=== PATIENT | female | born 1975 | race Asian ===

== ENCOUNTER 2018-10-12 13:34 | Inpatient (IN) | payer OTHER ==
[~2018-10-12] VITALS: Ht 152.4 cm; Wt 48.7 kg
[~2018-10-12 13:34] MED LIST: ETHA400T24 PO; FER325 PO; ISON300T18 PO; PREN-46 PO; PYRA500T21 PO; Pyridoxine PO; RIF120L PO
[2018-10-12] MEDS ORDERED: SODIUM CHLORIDE 0.9% 1L BAG IV* STA (15:39)
[2018-10-12] MEDS ORDERED: SOD CHLORIDE 0.9% 1,000 ML IV ONE (16:00)
[2018-10-12] MEDS ORDERED: IOHEXOL 300MG/ML 150 ML BTL ONE (16:16)
[2018-10-12] MEDS ORDERED: SOD CHLORIDE 0.9% 100 ML ONE (16:16)
[2018-10-12] MEDS ORDERED: VANCOMYCIN IV PER PHARMACY XX SCH (17:30)
[2018-10-12] MEDS ORDERED: ONDANSETRON 4 MG INJ IV PRN (17:30)
[2018-10-12] MEDS ORDERED: ACETAMINOPHEN 325 MG TAB PO PRN (17:30)
[2018-10-12] MEDS ORDERED: NACL 0.9% 3 ML SYG IV SCH (17:30)
[2018-10-12] MEDS ORDERED: HYDROCODONE/APAP (5/325) TAB PO PRN (17:30)
[2018-10-12] MEDS ORDERED: FLUCONAZOLE 100 MG/50 ML (PMX) 50 ML IVPB SCH (18:00)
[2018-10-12] MEDS ORDERED: VANCOMYCIN 1 GM in 250 ML IVPB ONE (18:00)
[2018-10-12] MEDS: PIPER-TAZO 3.375 GM IV (PMX) 100 ML IVPB SCH ×2 (18:34→23:55)
[2018-10-12] MEDS: ISONIAZID 300 MG TAB PO SCH (18:59)
[2018-10-12] MEDS: RIFAMPIN 300 MG CAP PO SCH (19:26)
[2018-10-12] MEDS: PYRIDOXINE 50 MG TAB PO SCH (19:26)
[2018-10-12] MEDS: ETHAMBUTOL 400 MG TAB PO SCH (19:28)
[2018-10-12] MEDS ORDERED: ISONIAZID 300 MG TAB PO SCH (20:00)
[2018-10-12] MEDS: PYRAZINAMIDE 500 MG TAB PO SCH (20:00)
[2018-10-12 20:55] VITALS: BP 113/62; PULSE 97; RESP 18
[2018-10-12] MEDS ORDERED: ETHAMBUTOL 100 MG TAB PO SCH (21:00)
[2018-10-12] MEDS: SOD CHLORIDE 0.9% 1,000 ML IV SCH (21:52)
[2018-10-12 22:02] VITALS: Ht 152.4 cm; Wt 48.7 kg
[2018-10-13 02:00] VITALS: BP 105/63; PULSE 92; RESP 18
[2018-10-13] MEDS: PIPER-TAZO 3.375 GM IV (PMX) 100 ML IVPB SCH ×4 (05:38→23:56)
[2018-10-13 08:30] VITALS: BP 103/61; PULSE 91; RESP 18
[2018-10-13] MEDS: RIFAMPIN 300 MG CAP PO SCH (08:41)
[2018-10-13] MEDS: PYRIDOXINE 50 MG TAB PO SCH (08:41)
[2018-10-13] MEDS: VANCOMYCIN 750 MG (PMX) 250 ML IVPB SCH ×2 (08:41→20:21)
[2018-10-13] MEDS: ISONIAZID 300 MG TAB PO SCH (08:41)
[2018-10-13] MEDS: ETHAMBUTOL 400 MG TAB PO SCH (08:42)
[2018-10-13] MEDS: PYRAZINAMIDE 500 MG TAB PO SCH (15:06)
[2018-10-13] MEDS: FLUCONAZOLE 100 MG TAB PO SCH (16:27)
[2018-10-13] MEDS: SOD CHLORIDE 0.9% 1,000 ML IV SCH (16:27)
[2018-10-13 20:00] VITALS: BP 99/63; PULSE 99; RESP 16
[2018-10-14 01:58] VITALS: BP 103/56; PULSE 76; RESP 16
[2018-10-14] MEDS: PIPER-TAZO 3.375 GM IV (PMX) 100 ML IVPB SCH ×2 (05:33→11:30)
[2018-10-14] MEDS: VANCOMYCIN 750 MG (PMX) 250 ML IVPB SCH (07:59)
[2018-10-14 08:00] VITALS: BP 98/61; PULSE 94; RESP 16
[2018-10-14] MEDS: RIFAMPIN 300 MG CAP PO SCH (08:18)
[2018-10-14] MEDS: PYRIDOXINE 50 MG TAB PO SCH (08:19)
[2018-10-14] MEDS: FLUCONAZOLE 100 MG TAB PO SCH (08:19)
[2018-10-14] MEDS: ISONIAZID 300 MG TAB PO SCH (08:20)
[2018-10-14] MEDS: PYRAZINAMIDE 500 MG TAB PO SCH (08:20)
[2018-10-14] MEDS: ETHAMBUTOL 400 MG TAB PO SCH (08:21)
[2018-10-14] MEDS: SOD CHLORIDE 0.9% 1,000 ML IV SCH ×2 (10:00→21:53)
[2018-10-14 14:00] VITALS: BP 98/57; PULSE 90; RESP 24
[2018-10-14] MEDS ORDERED: VANCOMYCIN 750 MG (PMX) 250 ML IVPB SCH (16:00)
[2018-10-14 20:33] VITALS: BP 100/58; PULSE 88; RESP 20
[2018-10-15 01:55] VITALS: BP 93/58; PULSE 82; RESP 18
[2018-10-15] MEDS: LEVOFLOXACIN 500 MG TAB PO SCH (06:02)
[2018-10-15 08:00] VITALS: BP 103/60; PULSE 94; RESP 16
[2018-10-15] MEDS: FLUCONAZOLE 100 MG TAB PO SCH (08:12)
[2018-10-15] MEDS: PYRAZINAMIDE 500 MG TAB PO SCH (08:12)
[2018-10-15] MEDS: RIFAMPIN 300 MG CAP PO SCH (08:12)
[2018-10-15] MEDS: ETHAMBUTOL 400 MG TAB PO SCH (08:12)
[2018-10-15] MEDS: ISONIAZID 300 MG TAB PO SCH (08:12)
[2018-10-15] MEDS: PYRIDOXINE 50 MG TAB PO SCH (08:12)
[2018-10-15 14:00] VITALS: BP 94/61; PULSE 92; RESP 24
[2018-10-15] MEDS: SOD CHLORIDE 0.9% 1,000 ML IV SCH (17:34)
[2018-10-15 20:00] VITALS: BP 108/67; PULSE 104; RESP 18
[2018-10-15] MEDS: FERROUS SULFATE (EC) 325 MG TAB PO SCH (21:42)
[2018-10-16 02:00] VITALS: BP 101/58; PULSE 82; RESP 17
[2018-10-16] MEDS: LEVOFLOXACIN 500 MG TAB PO SCH (05:45)
[2018-10-16 07:18] VITALS: BP 121/60; PULSE 91; RESP 16
[2018-10-16] MEDS: ETHAMBUTOL 400 MG TAB PO SCH (08:38)
[2018-10-16] MEDS: PYRAZINAMIDE 500 MG TAB PO SCH (08:38)
[2018-10-16] MEDS: RIFAMPIN 300 MG CAP PO SCH (08:38)
[2018-10-16] MEDS: ISONIAZID 300 MG TAB PO SCH (08:38)
[2018-10-16] MEDS: FLUCONAZOLE 100 MG TAB PO SCH (08:38)
[2018-10-16] MEDS: PYRIDOXINE 50 MG TAB PO SCH (08:38)
[2018-10-16] MEDS: FERROUS SULFATE (EC) 325 MG TAB PO SCH ×2 (08:38→21:23)
[2018-10-16] MEDS: SOD CHLORIDE 0.9% 1,000 ML IV SCH (12:27)
[2018-10-16 14:03] VITALS: BP 101/59; PULSE 69; RESP 16
[2018-10-16 20:00] VITALS: BP 101/58; PULSE 100; RESP 17
[2018-10-17 02:00] VITALS: BP 94/56; PULSE 85; RESP 17
[2018-10-17] MEDS: SOD CHLORIDE 0.9% 1,000 ML IV SCH (05:57)
[2018-10-17 08:00] VITALS: BP 100/51; PULSE 95; RESP 20
[2018-10-17] MEDS: ISONIAZID 300 MG TAB PO SCH (09:01)
[2018-10-17] MEDS: FERROUS SULFATE (EC) 325 MG TAB PO SCH ×2 (09:01→21:22)
[2018-10-17] MEDS: RIFAMPIN 300 MG CAP PO SCH (09:01)
[2018-10-17] MEDS: PYRAZINAMIDE 500 MG TAB PO SCH (09:01)
[2018-10-17] MEDS: PYRIDOXINE 50 MG TAB PO SCH (09:01)
[2018-10-17] MEDS: ETHAMBUTOL 400 MG TAB PO SCH (10:44)
[2018-10-17 20:00] VITALS: BP 101/63; PULSE 95; RESP 17
[2018-10-18 02:00] VITALS: BP 98/57; PULSE 87; RESP 18
[2018-10-18 08:14] VITALS: BP 105/62; PULSE 90; RESP 16
[2018-10-18] MEDS: ETHAMBUTOL 400 MG TAB PO SCH (08:27)
[2018-10-18] MEDS: PYRAZINAMIDE 500 MG TAB PO SCH (08:27)
[2018-10-18] MEDS: RIFAMPIN 300 MG CAP PO SCH (08:27)
[2018-10-18] MEDS: ISONIAZID 300 MG TAB PO SCH (08:28)
[2018-10-18] MEDS: FERROUS SULFATE (EC) 325 MG TAB PO SCH ×2 (08:28→21:23)
[2018-10-18] MEDS: PYRIDOXINE 50 MG TAB PO SCH (08:28)
[2018-10-18 14:00] VITALS: BP 123/69; PULSE 101; RESP 18
[2018-10-18 22:45] VITALS: BP 96/62; PULSE 91; RESP 19
[2018-10-19 04:00] VITALS: BP 102/64; PULSE 83; RESP 19
[2018-10-19 08:02] VITALS: BP 100/65; PULSE 103; RESP 16
[2018-10-19] MEDS: RIFAMPIN 300 MG CAP PO SCH (08:15)
[2018-10-19] MEDS: FERROUS SULFATE (EC) 325 MG TAB PO SCH ×2 (08:15→21:58)
[2018-10-19] MEDS: PYRIDOXINE 50 MG TAB PO SCH (08:15)
[2018-10-19] MEDS: PYRAZINAMIDE 500 MG TAB PO SCH (08:16)
[2018-10-19] MEDS: ISONIAZID 300 MG TAB PO SCH (08:16)
[2018-10-19] MEDS: ETHAMBUTOL 400 MG TAB PO SCH (08:19)
[2018-10-19 14:29] VITALS: BP 92/62; PULSE 97; RESP 18
[2018-10-19 20:10] VITALS: BP 100/65; PULSE 77; RESP 18
[2018-10-20 02:05] VITALS: BP 97/56; PULSE 75; RESP 18
[2018-10-20 08:00] VITALS: BP 108/62; PULSE 94; RESP 17
[2018-10-20] MEDS: ISONIAZID 300 MG TAB PO SCH (09:39)
[2018-10-20] MEDS: PYRAZINAMIDE 500 MG TAB PO SCH (09:40)
[2018-10-20] MEDS: RIFAMPIN 300 MG CAP PO SCH (09:40)
[2018-10-20] MEDS: PYRIDOXINE 50 MG TAB PO SCH (09:41)
[2018-10-20] MEDS: FERROUS SULFATE (EC) 325 MG TAB PO SCH ×2 (09:41→20:32)
[2018-10-20] MEDS: ETHAMBUTOL 400 MG TAB PO SCH (09:48)
[2018-10-20 10:00] VITALS: RESP 24
[2018-10-20 14:04] VITALS: BP 109/70; PULSE 80; RESP 19
[2018-10-20] MEDS ORDERED: ONDANSETRON (ODT) 4 MG TAB ODT PRN (16:00)
[2018-10-20 20:10] VITALS: BP 128/72; PULSE 75; RESP 18
[2018-10-20] MEDS: CEPASTAT LOZENGE MT PRN (20:36)
[2018-10-21 02:10] VITALS: BP 98/60; PULSE 91; RESP 18
[2018-10-21 08:26] VITALS: BP 107/57; PULSE 100; RESP 20
[2018-10-21] MEDS: ISONIAZID 300 MG TAB PO SCH (08:33)
[2018-10-21] MEDS: FERROUS SULFATE (EC) 325 MG TAB PO SCH ×2 (08:33→20:58)
[2018-10-21] MEDS: RIFAMPIN 300 MG CAP PO SCH (08:33)
[2018-10-21] MEDS: PYRIDOXINE 50 MG TAB PO SCH (08:34)
[2018-10-21] MEDS: ETHAMBUTOL 400 MG TAB PO SCH (08:34)
[2018-10-21] MEDS: PYRAZINAMIDE 500 MG TAB PO SCH (08:34)
[2018-10-21] MEDS: CEPASTAT LOZENGE MT PRN ×2 (12:12→17:47)
[2018-10-21 14:00] VITALS: BP 116/60; PULSE 103; RESP 20
[2018-10-21 16:42] VITALS: PULSE 95
[2018-10-21 20:10] VITALS: BP 106/73; PULSE 90; RESP 18
[2018-10-22 02:05] VITALS: BP 98/61; PULSE 72; RESP 18
[2018-10-22 07:45] VITALS: BP 11/86; PULSE 104; RESP 16
[2018-10-22] MEDS: FERROUS SULFATE (EC) 325 MG TAB PO SCH ×2 (08:41→21:01)
[2018-10-22] MEDS: PYRIDOXINE 50 MG TAB PO SCH (08:41)
[2018-10-22] MEDS: RIFAMPIN 300 MG CAP PO SCH (08:42)
[2018-10-22] MEDS: ETHAMBUTOL 400 MG TAB PO SCH (08:42)
[2018-10-22] MEDS: ISONIAZID 300 MG TAB PO SCH (08:42)
[2018-10-22] MEDS: PYRAZINAMIDE 500 MG TAB PO SCH (08:42)
[2018-10-22] MEDS ORDERED: hydrOXYzine HCL 10 MG TAB PO PRN (09:30)
[2018-10-22] MEDS: HYDROCORTISONE 1% 28 GM CR TOP SCH ×3 (10:27→21:02)
[2018-10-22 14:05] VITALS: BP 103/66; PULSE 91; RESP 16
[2018-10-22 19:52] VITALS: BP 96/64; PULSE 91; RESP 16
[2018-10-23 02:05] VITALS: BP 106/71; PULSE 96; RESP 16
[2018-10-23 08:00] VITALS: BP 130/79; PULSE 100; RESP 18
[2018-10-23] MEDS: ETHAMBUTOL 400 MG TAB PO SCH (08:52)
[2018-10-23] MEDS: PYRAZINAMIDE 500 MG TAB PO SCH (08:53)
[2018-10-23] MEDS: FERROUS SULFATE (EC) 325 MG TAB PO SCH ×2 (08:53→20:08)
[2018-10-23] MEDS: HYDROCORTISONE 1% 28 GM CR TOP SCH ×3 (08:53→20:10)
[2018-10-23] MEDS: PYRIDOXINE 50 MG TAB PO SCH (08:53)
[2018-10-23] MEDS: ISONIAZID 300 MG TAB PO SCH (08:53)
[2018-10-23] MEDS: RIFAMPIN 300 MG CAP PO SCH (08:53)
[2018-10-23 14:00] VITALS: BP 105/71; PULSE 95; RESP 16
[2018-10-23 20:00] VITALS: BP 104/67; PULSE 106; RESP 17
[2018-10-23 20:30] VITALS: BP 110/67; PULSE 98; RESP 16
[2018-10-23 20:45] VITALS: PULSE 97
[2018-10-24 02:00] VITALS: BP 96/54; PULSE 19; RESP 19
[2018-10-24 08:00] VITALS: BP 97/68; PULSE 93; RESP 17
[2018-10-24] MEDS: RIFAMPIN 300 MG CAP PO SCH (09:21)
[2018-10-24] MEDS: FERROUS SULFATE (EC) 325 MG TAB PO SCH ×2 (09:21→20:51)
[2018-10-24] MEDS: PYRAZINAMIDE 500 MG TAB PO SCH (09:21)
[2018-10-24] MEDS: ISONIAZID 300 MG TAB PO SCH (09:21)
[2018-10-24] MEDS: PYRIDOXINE 50 MG TAB PO SCH (09:21)
[2018-10-24] MEDS: ETHAMBUTOL 400 MG TAB PO SCH (09:21)
[2018-10-24] MEDS: HYDROCORTISONE 1% 28 GM CR TOP SCH ×3 (09:25→20:57)
[2018-10-24 10:50] VITALS: BP 102/66; PULSE 90
[2018-10-24 14:00] VITALS: BP 95/59; PULSE 94; RESP 17
[2018-10-24 20:00] VITALS: BP 96/61; PULSE 88; RESP 17
[2018-10-25 02:00] VITALS: BP 102/57; PULSE 84; RESP 17
[2018-10-25 08:31] VITALS: BP 109/63; PULSE 98; RESP 16
[2018-10-25] MEDS: PYRIDOXINE 50 MG TAB PO SCH (09:21)
[2018-10-25] MEDS: RIFAMPIN 300 MG CAP PO SCH (09:21)
[2018-10-25] MEDS: PYRAZINAMIDE 500 MG TAB PO SCH (09:21)
[2018-10-25] MEDS: FERROUS SULFATE (EC) 325 MG TAB PO SCH ×2 (09:21→20:26)
[2018-10-25] MEDS: HYDROCORTISONE 1% 28 GM CR TOP SCH ×3 (09:21→20:32)
[2018-10-25] MEDS: ETHAMBUTOL 400 MG TAB PO SCH (09:21)
[2018-10-25] MEDS: ISONIAZID 300 MG TAB PO SCH (09:21)
[2018-10-25 14:44] VITALS: BP 103/68; PULSE 105; RESP 16
[2018-10-25 19:58] VITALS: BP 102/70; PULSE 106; RESP 18
[2018-10-26 02:03] VITALS: BP 94/55; PULSE 86; RESP 18
[2018-10-26 08:00] VITALS: BP 119/70; PULSE 100; RESP 17
[2018-10-26] MEDS: PYRAZINAMIDE 500 MG TAB PO SCH (08:13)
[2018-10-26] MEDS: FERROUS SULFATE (EC) 325 MG TAB PO SCH ×2 (08:13→20:27)
[2018-10-26] MEDS: RIFAMPIN 300 MG CAP PO SCH (08:13)
[2018-10-26] MEDS: ETHAMBUTOL 400 MG TAB PO SCH (08:14)
[2018-10-26] MEDS: ISONIAZID 300 MG TAB PO SCH (08:14)
[2018-10-26] MEDS: PYRIDOXINE 50 MG TAB PO SCH (08:14)
[2018-10-26] MEDS: HYDROCORTISONE 1% 28 GM CR TOP SCH ×3 (08:15→20:27)
[2018-10-26 14:11] VITALS: BP 111/76; PULSE 102; RESP 16
[2018-10-26 20:00] VITALS: BP 123/74; PULSE 108; RESP 19
[2018-10-27 02:00] VITALS: BP 99/64; PULSE 84; RESP 19
[2018-10-27 08:19] VITALS: BP 98/66; PULSE 93; RESP 16
[2018-10-27] MEDS: ISONIAZID 300 MG TAB PO SCH (08:26)
[2018-10-27] MEDS: ETHAMBUTOL 400 MG TAB PO SCH (08:26)
[2018-10-27] MEDS: PYRIDOXINE 50 MG TAB PO SCH (08:26)
[2018-10-27] MEDS: PYRAZINAMIDE 500 MG TAB PO SCH (08:26)
[2018-10-27] MEDS: RIFAMPIN 300 MG CAP PO SCH (08:26)
[2018-10-27] MEDS: HYDROCORTISONE 1% 28 GM CR TOP SCH ×3 (08:26→20:33)
[2018-10-27] MEDS: FERROUS SULFATE (EC) 325 MG TAB PO SCH ×2 (08:26→20:32)
[2018-10-27 14:13] VITALS: BP 104/67; PULSE 96; RESP 16
[2018-10-27 20:00] VITALS: BP 103/69; PULSE 90; RESP 18
[2018-10-28 02:00] VITALS: BP 101/64; PULSE 78; RESP 17
[2018-10-28 07:48] VITALS: BP 104/67; PULSE 110; RESP 18
[2018-10-28] MEDS: FERROUS SULFATE (EC) 325 MG TAB PO SCH ×2 (09:23→21:47)
[2018-10-28] MEDS: ISONIAZID 300 MG TAB PO SCH (09:23)
[2018-10-28] MEDS: HYDROCORTISONE 1% 28 GM CR TOP SCH ×3 (09:23→21:47)
[2018-10-28] MEDS: ETHAMBUTOL 400 MG TAB PO SCH (09:23)
[2018-10-28] MEDS: PYRIDOXINE 50 MG TAB PO SCH (09:23)
[2018-10-28] MEDS: PYRAZINAMIDE 500 MG TAB PO SCH (09:23)
[2018-10-28] MEDS: RIFAMPIN 300 MG CAP PO SCH (09:23)
[2018-10-28 14:05] VITALS: BP 110/69; PULSE 106; RESP 18
[2018-10-28 20:37] VITALS: BP 111/61; PULSE 96; RESP 18
[2018-10-29 02:03] VITALS: BP 103/62; PULSE 84; RESP 20
[2018-10-29 08:00] VITALS: BP 114/84; PULSE 88; RESP 20
[2018-10-29] MEDS: FERROUS SULFATE (EC) 325 MG TAB PO SCH ×2 (09:14→20:29)
[2018-10-29] MEDS: RIFAMPIN 300 MG CAP PO SCH (09:14)
[2018-10-29] MEDS: ISONIAZID 300 MG TAB PO SCH (09:14)
[2018-10-29] MEDS: HYDROCORTISONE 1% 28 GM CR TOP SCH ×3 (09:15→20:29)
[2018-10-29] MEDS: PYRAZINAMIDE 500 MG TAB PO SCH (09:15)
[2018-10-29] MEDS: PYRIDOXINE 50 MG TAB PO SCH (09:15)
[2018-10-29] MEDS: ETHAMBUTOL 400 MG TAB PO SCH (09:22)
[2018-10-29 14:00] VITALS: BP 112/64; PULSE 96; RESP 18
[2018-10-29 20:17] VITALS: BP 113/77; PULSE 103; RESP 18
[2018-10-30 02:57] VITALS: BP 93/58; PULSE 78; RESP 16
[2018-10-30 08:00] VITALS: BP 124/67; PULSE 72; RESP 18
[2018-10-30] MEDS: ETHAMBUTOL 400 MG TAB PO SCH (09:09)
[2018-10-30] MEDS: RIFAMPIN 300 MG CAP PO SCH (09:09)
[2018-10-30] MEDS: FERROUS SULFATE (EC) 325 MG TAB PO SCH ×2 (09:10→21:08)
[2018-10-30] MEDS: ISONIAZID 300 MG TAB PO SCH (09:10)
[2018-10-30] MEDS: PYRAZINAMIDE 500 MG TAB PO SCH (09:10)
[2018-10-30] MEDS: PYRIDOXINE 50 MG TAB PO SCH (09:10)
[2018-10-30] MEDS: HYDROCORTISONE 1% 28 GM CR TOP SCH ×3 (09:10→21:09)
[2018-10-30 14:00] VITALS: BP 118/66; PULSE 76; RESP 18
[2018-10-30 20:10] VITALS: BP 113/73; PULSE 95; RESP 18
[2018-10-31 02:22] VITALS: BP 115/97; PULSE 98; RESP 18
[2018-10-31 08:18] VITALS: BP 106/72; PULSE 84; RESP 20
[2018-10-31] MEDS: RIFAMPIN 300 MG CAP PO SCH (08:28)
[2018-10-31] MEDS: FERROUS SULFATE (EC) 325 MG TAB PO SCH ×2 (08:28→20:50)
[2018-10-31] MEDS: ETHAMBUTOL 400 MG TAB PO SCH (08:28)
[2018-10-31] MEDS: ISONIAZID 300 MG TAB PO SCH (08:28)
[2018-10-31] MEDS: HYDROCORTISONE 1% 28 GM CR TOP SCH ×3 (08:28→20:50)
[2018-10-31] MEDS: PYRAZINAMIDE 500 MG TAB PO SCH (08:28)
[2018-10-31] MEDS: PYRIDOXINE 50 MG TAB PO SCH (08:28)
[2018-10-31 14:00] VITALS: BP 106/72; PULSE 76; RESP 18
[2018-10-31 20:10] VITALS: BP 101/66; PULSE 92; RESP 18
[2018-11-01 02:30] VITALS: BP 99/58; PULSE 95; RESP 18
[2018-11-01 07:54] VITALS: BP 108/61; PULSE 85; RESP 18
[2018-11-01 08:05] VITALS: BP 106/60; PULSE 102; RESP 18
[2018-11-01] MEDS: PYRIDOXINE 50 MG TAB PO SCH (08:59)
[2018-11-01] MEDS: ETHAMBUTOL 400 MG TAB PO SCH (08:59)
[2018-11-01] MEDS: HYDROCORTISONE 1% 28 GM CR TOP SCH ×3 (08:59→20:42)
[2018-11-01] MEDS: ISONIAZID 300 MG TAB PO SCH (09:00)
[2018-11-01] MEDS: PYRAZINAMIDE 500 MG TAB PO SCH (09:00)
[2018-11-01] MEDS: FERROUS SULFATE (EC) 325 MG TAB PO SCH ×2 (09:00→20:42)
[2018-11-01] MEDS: RIFAMPIN 300 MG CAP PO SCH (09:01)
[2018-11-01 15:17] VITALS: BP 112/64; PULSE 90; RESP 18
[2018-11-01 20:00] VITALS: BP 105/66; PULSE 89; RESP 18
[2018-11-02 02:00] VITALS: BP 100/57; PULSE 85; RESP 17
[2018-11-02 08:00] VITALS: BP 110/64; PULSE 105; RESP 16
[2018-11-02] MEDS: HYDROCORTISONE 1% 28 GM CR TOP SCH ×3 (08:25→20:59)
[2018-11-02] MEDS: FERROUS SULFATE (EC) 325 MG TAB PO SCH ×2 (08:26→20:58)
[2018-11-02] MEDS: RIFAMPIN 300 MG CAP PO SCH (08:26)
[2018-11-02] MEDS: PYRAZINAMIDE 500 MG TAB PO SCH (08:26)
[2018-11-02] MEDS: ISONIAZID 300 MG TAB PO SCH (08:26)
[2018-11-02] MEDS: ETHAMBUTOL 400 MG TAB PO SCH (08:26)
[2018-11-02] MEDS: PYRIDOXINE 50 MG TAB PO SCH (08:26)
[2018-11-02 14:00] VITALS: BP 124/60; PULSE 113; RESP 18
[2018-11-02 20:49] VITALS: BP 111/71; PULSE 93; RESP 16
[2018-11-03 02:49] VITALS: BP 100/57; PULSE 93; RESP 18
[2018-11-03 08:00] VITALS: BP 101/65; PULSE 103; RESP 18
[2018-11-03] MEDS: ETHAMBUTOL 400 MG TAB PO SCH (08:34)
[2018-11-03] MEDS: PYRAZINAMIDE 500 MG TAB PO SCH (08:34)
[2018-11-03] MEDS: ISONIAZID 300 MG TAB PO SCH (08:35)
[2018-11-03] MEDS: HYDROCORTISONE 1% 28 GM CR TOP SCH ×3 (08:35→21:00)
[2018-11-03] MEDS: RIFAMPIN 300 MG CAP PO SCH (08:35)
[2018-11-03] MEDS: FERROUS SULFATE (EC) 325 MG TAB PO SCH ×2 (08:35→21:22)
[2018-11-03] MEDS: PYRIDOXINE 50 MG TAB PO SCH (08:35)
[2018-11-03 14:00] VITALS: BP 111/78; PULSE 103; RESP 18
[2018-11-03 20:32] VITALS: BP 113/75; PULSE 98; RESP 18
[2018-11-04 02:37] VITALS: BP 98/55; PULSE 87; RESP 16
[2018-11-04 08:00] VITALS: BP 109/57; PULSE 69; RESP 18
[2018-11-04] MEDS: FERROUS SULFATE (EC) 325 MG TAB PO SCH (08:15)
[2018-11-04] MEDS: PYRIDOXINE 50 MG TAB PO SCH (08:15)
[2018-11-04] MEDS: ISONIAZID 300 MG TAB PO SCH (08:15)
[2018-11-04] MEDS: RIFAMPIN 300 MG CAP PO SCH (08:15)
[2018-11-04] MEDS: ETHAMBUTOL 400 MG TAB PO SCH (08:15)
[2018-11-04] MEDS: HYDROCORTISONE 1% 28 GM CR TOP SCH ×2 (08:16→08:19)
[2018-11-04] MEDS: PYRAZINAMIDE 500 MG TAB PO SCH (08:16)
== END 2018-11-04 10:25 | disposition home or self-care (01) | DRG 178 ==
LOC: E/R 13:34 → PP2 16:59 → SUATTDRO 17:03
PROVIDERS: ADMIT Internal Medicine; ATTEND Internal Medicine
DX: A15.0 Tuberculosis of lung (principal); R65.10 Systemic inflammatory response syndrome (SIRS) of non-infectious origin without acute organ dysfunction; J18.9 Pneumonia, unspecified organism; D50.9 Iron deficiency anemia, unspecified; R21 Rash and other nonspecific skin eruption
CPT/HCPCS: 71046; 71260; 80053; 80061; 80069; 80202; 81001; 82728; 83036; 83540; 83605; 83735; 84100; 84443; 84484; 84702; 84703; 85025; 85610; 85730; 86480; 86580; 86635; 86703; 86704; 86709; 86803; 87070; 87116; 87340; 87536; 93005; 93306; J1450; J2543; J3370; J7030; Q9967